=== PATIENT | female | born 1975 | race Two or more races ===

== ENCOUNTER 2023-06-21 07:36 | Day surgery (SDC) | payer OTHER ==
[2023-06-21] MEDS ORDERED: IBU600 MG PO (10:08)
== END 2023-06-21 13:50 | disposition home or self-care (01) ==
LOC: CIR.AMB 07:36
PROVIDERS: ATTEND Obstetrics & Gynecology Gynecology
DX: N87.9 Dysplasia of cervix uteri, unspecified (principal); Z88.0 Allergy status to penicillin; Z88.6 Allergy status to analgesic agent; Z20.822 Contact with and (suspected) exposure to COVID-19